=== PATIENT | female | born 1970 | race Caucasian/White ===

== ENCOUNTER → 2016-04-05 | Outpatient (CLI) | payer OTHER ==
[~2016-04-05] MED LIST: ALBU17IN INH; AZEL0.055; BENZ100C5 PO; LEVA500T PO; METHACHOLINE KIT (J7674) INH ONE; MUCI600T34 PO; PARO40TA PO; PRED50TA PO; VITMTA PO
== END ==
LOC: M CARPUL 10:51
PROVIDERS: ATTEND Allergy & Immunology Allergy
DX: J45.30 Mild persistent asthma, uncomplicated (principal)